=== PATIENT | female | born 1995 | race Caucasian/White ===

== ENCOUNTER 2017-12-25 11:48 | Outpatient (CLI) | payer MEDICAID ==
[2017-12-27 00:50] VITALS: BP 116/57
== END 2017-12-25 13:20 | disposition home or self-care (01) ==
LOC: TRG 11:48
PROVIDERS: ATTEND Obstetrics & Gynecology
DX: O48.0 Post-term pregnancy (principal); Z3A.40 40 weeks gestation of pregnancy
CPT/HCPCS: 59025